=== PATIENT | male | born 1980 | race Caucasian/White ===

== ENCOUNTER 2019-11-22 00:15 | Observation (INO) | payer OTHER, SELFPAY ==
[2019-11-22] VITALS (19 sets, daily range): BP systolic 68–170; BP diastolic 41–110; PULSE 84–123; RESP 14–23; TEMP 36.4–37.2; O2SAT 94–100; BMI 25.1
--- NOTE | ~2019-11-22 | XR_ITS ---
EXAMINATION: XR chest 2V DATE: 11/22/2019 15:53 INDICATION: Cough. Seizure. TECHNIQUE: frontal and lateral views of the chest were obtained. COMPARISON: None FINDINGS: The lungs are clear with no focal airspace opacities, pulmonary edema, pleural effusion or pneumothor ax. The cardiomediastinal silhouette is normal. Comminuted fracture of the proximal left humerus. IMPRESSION: 1. No acute cardiopulmonary disease. 2. Comminuted proximal left humeral fracture. Reviewed, dictated and finalized at location A. CHUTE HARNESS RIGGER
--- NOTE | ~2019-11-22 | XR_ITS ---
EXAMINATION: XR shoulder LT min 2V DATE: 11/22/2019 01:03 INDICATION: Left shoulder pain. Fall. TECHNIQUE: 4 views of left shoulder were obtained. COMPARISON: None. FINDINGS: There is a comminuted fracture of proximal left humerus. At the surgical neck, the distal f racture fragment demonstrates 5 mm medial displacement, 1.4 cm impaction, and 2 mm anterior displacem ent. There is a nondisplaced fracture component at the greater tuberosity. There is mild osteoarthrit is of glenohumeral joint. Acromioclavicular joint is normal. IMPRESSION: 1. Comminuted two-part fracture of proximal left humerus. Reviewed, dictated and finalized at location A. HANDISE CLERK
--- NOTE | ~2019-11-22 | CT_ITS ---
EXAMINATION: CT cervical spine wo con DATE: 11/22/2019 00:51 INDICATION: Head injury. Neck pain. TECHNIQUE: Computed tomography (CT) of the cervical spine was performed without intravenous contrast. Automated exposure control and iterative reconstruction technique were employed. The dose-length pro duct was 408.00 mGy-cm. COMPARISON: None FINDINGS: There is 3 degrees levocurvature of cervical spine. There is a chronic compression fracture of T1 with 2/5 loss of height. There is mildly decreased disc height at C4-C5, C6-C7, and C7-T1 and moderately decreased disc height at C5-C6. The following disc levels are specifically discussed: C2-C3: There is mild left uncovertebral joint osteoarthritis. There is mild bilateral facet joint ost eoarthritis. There is no neural foraminal stenosis. There is no central canal stenosis. C3-C4: There is mild bilateral uncovertebral joint osteoarthritis. There is mild bilateral facet join t osteoarthritis. There is mild right neural foraminal stenosis. There is no central canal stenosis. C4-C5: There is mild bilateral uncovertebral joint osteoarthritis. There is moderate left facet joint osteoarthritis. There is mild bilateral neural foraminal stenosis. There is mild central canal steno sis. C5-C6: There is severe bilateral uncovertebral joint osteoarthritis. There is no facet joint osteoart hritis. There is moderate right and mild left neural foraminal stenosis. There is mild central canal stenosis. C6-C7: There is mild bilateral uncovertebral joint osteoarthritis. There is mild bilateral facet join t osteoarthritis. There is mild bilateral neural foraminal stenosis. There is mild central canal sten osis. C7-T1: There is no uncovertebral joint osteoarthritis. There is severe bilateral facet joint osteoart hritis. There is mild bilateral neural foraminal stenosis. There is no central canal stenosis. IMPRESSION: 1. No acute fracture. 2. Moderate cervical spondylosis. Reviewed, dictated and finalized at location A. ITAL CNA
--- NOTE | ~2019-11-22 | CT_ITS ---
EXAMINATION: CT brain wo con DATE: 11/22/2019 00:50 INDICATION: Head injury. Loss of consciousness. TECHNIQUE: Computed tomography (CT) of the head was performed without intravenous contrast. The mA wa s adjusted according to patient size. Iterative reconstruction technique was employed. The dose-lengt h product was 681.00 mGy-cm. COMPARISON: Brain MRI 02/16/2018 FINDINGS: There is no intracranial hemorrhage, acute infarction, or abnormal intracranial mass lesion . The ventricles are normal in size. The orbits are normal. There is mild mucosal thickening in the p aranasal sinuses. The mastoid air cells are normal. There is left posterior scalp soft tissue swellin g. IMPRESSION: 1. Normal brain. Reviewed, dictated and finalized at location A. ITURE STAINER IMPRESSION: 1. Normal brain.
--- NOTE | 2019-11-22 01:19 | ED.HEATRA ---
HPI - Head Injury General Chief complaint: Head Injury Stated complaint: fall Time Seen by Provider: 11/22/19 01:19 Source: patient Mode of arrival: wheelchair Limitations: no limitations History of Present Illness HPI Narrative: A 38 y/o male presents to the ED after a fall this evening. Pt states he was walking to his car at his sister's house when he slipped on some ice and fell on his left side. Pt c/o left shoulder pain and a HI. Pt went back inside the house to sit down. While pt's sister was grabbing her phone to call their mom, pt got up and had fallen on the floor with possible LOC. Pt's sister helped him up and then he proceeded to falll two more times. Pt does not remember falling the first two times in the house but remembers that he was lightheaded before he fell the third time. Pt notes that he is currently lightheaded in the ED bed. Pt is right hand dominant. He reports daily alcohol use and smoking 0.5 PPD, but denies numbness/tingling, leg pain, CP, SOB, a PMHx of syncope, and drug use. Mechanism of Injury: fall Place: other (sister's house) Related Data Home Medications Medication Instructions Recorded Confirmed cetirizine [Zyrtec] 10 mg PO DAILY PRN 11/22/19 11/22/19 dextroamphetamine-amphetamine 30 mg PO DAILY 11/22/19 11/22/19 [Adderall XR] fluticasone propion-salmeterol 1 puff INHALATION DAILY 11/22/19 11/22/19 fluticasone propionate 2 spray INTRANASAL DAILY PRN 11/22/19 11/22/19 hydroxyzine HCl 25 mg PO DAILY 11/22/19 11/22/19 lisinopril-hydrochlorothiazide tablet 11/22/19 melatonin 15 mg PO HS PRN 11/22/19 11/22/19 sertraline mg 11/22/19 Allergies Allergy/AdvReac Type Severity Reaction Status Date / Time Sulfa (Sulfonamide Allergy Unknown Unknown Verified 11/22/19 01:07 Antibiotics) Review of Systems Review of Systems: All systems reviewed & are unremarkable except as noted in HPI and below Constitutional: Comments: Reports: a fall, lightheadedness Cardiovascular: Cardiovascular: Denies chest pain Respiratory: Respiratory: Denies dyspnea Musculoskeletal: Comments: Reports: left shoulder pain; Denies: leg pain Neurologic: Comments: Reports: HI, LOC; Denies: numbness/tingling PMFSH Past Medical History Medical History Anxiety Fatty liver HTN (hypertension) Surgical History Surgical History History of liver biopsy S/P correction of deviated nasal septum Family History Family History Father Carcinoma of colon Malignant neoplasm of prostate Other Hypertension Social History Social History Smoking packs per day: 0.5 Smoking cigarettes per day: 10.0 Smoking status: Current every day smoker Alcohol intake: current Alcohol use details: daily Substance use: never Comments PCP: Ofelia Egan NP Exam Narrative: Exam Narrative: GENERAL: Well-appearing, well-nourished, and in no acute distress. HEAD: Normocephalic, left occipital scalp hematoma EYES: PERRLA and EOMI, conjunctiva clear without discharge EARS: TM's clear bilaterally without erythema or dullness NOSE: Nares clear, no rhinorrhea or epistaxis THROAT:Mucous membranes moist, Oropharynx normal without erythema, exudate, peritonsillar swelling or fluctuance NECK: Supple, without lymphadenopathy or mass RESPIRATORY: No respiratory distress, Airway patent, Respirations non-labored, Clear to auscultation without rales, rhonchi or wheeze, no chest tenderness HEART: Regular rate and rhythm. No murmur heard. Normal peripheral pulses. ABDOMEN: Soft, nontender, nondistended, normal active bowel sounds. No masses. No rebound or guarding, No organomegaly. SKIN: Warm, dry, normal color without rash NEURO: Alert and oriented x3. CN 2-12 grossly intact. No focal deficits. PSYCH: Normal mood and a
--- NOTE | 2019-11-22 01:30 | ECG_ITS ---
Measurements Intervals [place] Rate: 101 P: 49 UT: 160 QRS: 69 QRSD: 98 T: 55 QT: 350 QTc: 454 Interpretive Statements SINUS TACHYCARDIA BORDERLINE ECG Electronically Signed On 11-22-2019 8:27:22 BOAT CLEANING SUPERVISOR by Jose Last D.O.
[2019-11-22] MEDS: SODIUM CHLORIDE 0.9% IV 1,000 ML 999 ML IV CONT (02:13)
[2019-11-22] MEDS: ONDANSETRON INJ 4 MG/2 ML VIAL IV PUSH (02:13)
[2019-11-22] MEDS: HYDROMORPHONE HCL 1 MG/ML INJ 0.5 MG IV PUSH (02:14)
[2019-11-22 02:20] LABS: Alanine Aminotransferase 184 U/L (4-50); Albumin Level 5.2 g/dL (3.5-5.1); Alkaline Phosphatase 131 U/L (38-126); Aspartate Amino Transferase 239 U/L (17-59); Basophils Absolute Auto 0.1 K/mm3 (0.0-0.1); Basophils Percent Auto 0.7 % (0.2-1.2); Bilirubin,Total 0.5 mg/dL (0.2-1.3); Blood Urea Nitrogen 6 mg/dL (9-20); Calcium 9.2 mg/dL (8.4-10.2); Carbon Dioxide 25 mmol/L (22-30); Chloride 87 mmol/L (98-107); Eosinophils Percent Auto 0.3 % (0-4.4); Estimated CRCL calculation 145 ml/min; Estimated Glomerular Filt Rate > 60; Glucose 93 mg/dL (75-110); Hematocrit 39.4 % (42.0-52.0); Hemoglobin 13.6 g/dL (14.0-18.0); Immature Granulocyte Absolute 0.06 K/mm3 (0.00-0.031); Immature Granulocyte Percent A 0.5 % (0-0.5); Lymphocytes Absolute Auto 0.84 K/mm3 (0.9-3.2); Lymphocytes Percent Auto 7.7 % (18.3-44.2); Mean Corpuscular HGB Conc 34.5 g/dl (32-36); Mean Corpuscular Hemoglobin 32.5 pg (26-34); Monocytes Absolute Auto 0.7 K/mm3 (0.1-0.6); Monocytes Percent Auto 6.6 % (2.6-8.5); Neutrophils Absolute Auto 9.2 K/mm3 (1.3-6.7); Neutrophils Percent Auto 84.2 % (45.5-73.1); Platelet Count Result 313 k/mm3 (150-375); Red Blood Count 4.19 M/mm3 (4.6-6.20); Red Cell Distribution Width 12.5 % (11.5-14.5); Sodium 127 mmol/L (137-145)
[2019-11-22 02:47] LABS: Magnesium 2.1 mg/dL (1.6-2.3)
--- NOTE | 2019-11-22 04:39 | PM.IMHP ---
H&P: HPI History of Present Illness Chief complaint: Syncope, fall, head trauma. Narrative: This is a 38 year old male known to me from previous history of alcoholism with chronically elevated LFTs who presented to the hospital [facility] after suffering a fall outside. The patient has been staying with his sister. Apparently he went outside and slipped on the ice and fell on his left shoulder. His sister witnessed him suffer two syncopal episodes afterwards when he attempted to stand up and immediately passed out. He remembers hitting the back of his head but not many other details. The patient is known to have a liver specialist at [facility]. He admits that he continues to drink 5-6 beers daily. He just recently started hydrochlorothiazide recently. The patient was evaluated in the ER and found to have a left shoulder fracture. Ortho was consulted by ER provider. Currently the patient denies any alcohol withdrawal symptoms. The patient has no other complaints at this time. Review of Systems Review of Systems: All systems reviewed & are unremarkable except as noted in HPI and below PMFSH Past Medical History Medical History Anxiety Fatty liver HTN (hypertension) Surgical History Surgical History History of liver biopsy S/P correction of deviated nasal septum Family History Family History Father Malignant neoplasm of prostate Carcinoma of colon Sibling Hypertension Sister Melanoma Sister Social History Social History Smoking packs per day: 0.5 Smoking cigarettes per day: 10.0 Smoking status: Current every day smoker Tobacco type: cigarettes Alcohol intake: current Drinks per week: 20 Alcohol use details: daily Substance use: current Substance use type: does not use Gender identity (if verbalized by the patient): Male Spiritual care concerns: No Agree to blood products: Yes Meds Home Medications and Allergies Home Medications Medication Instructions Recorded Confirmed Type cetirizine [Zyrtec] 10 mg PO DAILY PRN 11/22/19 11/22/19 History dextroamphetamine-amphetamine 30 mg PO DAILY 11/22/19 11/22/19 History [Adderall XR] fluticasone propion-salmeterol 1 puff INHALATION DAILY 11/22/19 11/22/19 History fluticasone propionate 2 spray INTRANASAL DAILY PRN 11/22/19 11/22/19 History hydroxyzine HCl 25 mg PO DAILY 11/22/19 11/22/19 History lisinopril-hydrochlorothiazide 1 tablet PO DAILY 11/22/19 11/22/19 History melatonin 15 mg PO HS PRN 11/22/19 11/22/19 History sertraline 150 mg PO DAILY 11/22/19 11/22/19 History Allergies Allergy/AdvReac Type Severity Reaction Status Date / Time Sulfa (Sulfonamide Allergy Unknown Unknown Verified 11/22/19 01:07 Antibiotics) Vital Signs Vital Signs - 24 hr 11/22/19 00:21 11/22/19 01:03 11/22/19 02:41 Temperature 36.4 C L 36.7 C 36.7 C Pulse Rate 84 95 97 Respiratory Rate 16 23 H 19 Blood Pressure 97/63 L 147/99 H 112/56 L Pulse Oximetry 99 98 98 11/22/19 02:42 11/22/19 03:47 Temperature Pulse Rate 94 103 H Respiratory Rate 20 Blood Pressure 71/41 L 124/95 H Pulse Oximetry 94 Exam Const: General: cooperative, alert and awake Nutritional Appearance: well nourished Orientation/consciousness: patient oriented x3 HENMT: Head: contusion left occipital General nose exam: Normal external nose present Face and sinus: normal facial exam Mouth: Yes Normal oral and palatal mucosa present and Yes oropharynx normal Eyes: Pupils: Equal, round and reactive pupils present EOM: EOMs intact bilaterally Neck: Neck: supple and no JVD Thyroid: thyroid normal Lymphatic: lymphadenopathy not noted Resp: Effort & Inspection: normal respiratory effort Auscultation: clear to auscultation bilaterally Cardi
--- NOTE | 2019-11-22 05:37 | ADMGEN ---
This patient, Oscar Umanzor, was admitted to [facility] Surg Room 306-01. Patient/family oriented to hospital policies and general routines including ID bracelet, bed and alarms, visiting hours, pain management, procedures, bathroom and other care routines, personal items, smoking policy, room service/diet, and visiting hours. Valuables list has been completed. Information on how to activate the Rapid Response Team has been discussed. Patient/Family are encouraged to report perceived risks to care and to ask questions if they do not understand what they are told or what they should do.
[2019-11-22 06:41] LABS: Glucose Point of Care 83 (65-105)
[2019-11-22 08:20] LABS: Alanine Aminotransferase 154 U/L (4-50); Albumin Level 4.6 g/dL (3.5-5.1); Alkaline Phosphatase 104 U/L (38-126); Aspartate Amino Transferase 178 U/L (17-59); Bilirubin,Total 0.5 mg/dL (0.2-1.3); Blood Urea Nitrogen 5 mg/dL (9-20); Calcium 8.5 mg/dL (8.4-10.2); Carbon Dioxide 23 mmol/L (22-30); Chloride 95 mmol/L (98-107); Estimated CRCL calculation 145 ml/min; Estimated Glomerular Filt Rate > 60; Glucose 85 mg/dL (75-110); Potassium 4.4 mmol/L (3.4-5.0); Sodium 130 mmol/L (137-145)
[2019-11-22] MEDS: THIAMINE HCL 200 MG/2 ML VIAL 100 MG IV PUSH (08:37)
[2019-11-22] MEDS: hydrOXYzine HCL 25 MG TABLET PO (08:38)
--- NOTE | 2019-11-22 08:55 | PM.CNOR ---
Assessment and Plan Assessment and plan (1) Closed left humeral fracture: Qualifiers: Encounter type: initial encounter Humerus Location: surgical neck Fracture morphology: 2-part Fracture alignment: displaced Qualified Code(s): S42.222A - 2-part displaced fracture of surgical neck of left humerus, initial encounter for closed fracture Code(s): S42.302A - Unspecified fracture of shaft of humerus, left arm, initial encounter for closed fracture Status: Acute Assessment and Plan: [age] year old male with comminuted left proximal humerus fracture. Upon discharge, will make the referral to [place] [facility] to have this addressed surgically. This was discussed with him in detail. For now, continue with the immobilizer taking it off for hygiene. History of Present Illness HPI Consult date: 11/22/19 Consult reason: fracture (Left proximal humerus fracture) Chief complaint: Syncope, fall, head trauma. Narrative: 38-year-old right-handed male who slipped on ice yesterday and fell suffering a left proximal humerus fracture. He has been admitted for medical reasons. He complains of pain in the left shoulder. Review of Systems Constitutional: Constitutional: Reports no additional constitutional complaints, Denies excessive sweating and Denies fatigue Eyes: Eyes: Reports no additional eye complaints ENT: Reports system reviewed and no additional complaints, except as documented Cardiovascular: Cardiovascular: Denies chest pain at rest and Denies dyspnea Respiratory: Respiratory: Reports no additional respiratory complaints and Denies dyspnea Gastrointestinal: Gastrointestinal: Reports no additional gastrointestinal complaints Musculoskeletal: Musculoskeletal: Reports as per HPI Integumentary/Breasts: Skin/Breast: Reports system reviewed and no additional complaints, except as docu Neurologic: Reports as per HPI Endocrine: Endocrine: Denies excessive sweating and Denies fatigue Hematologic/Lymphatic: Hematologic/Lymphatic: Denies easy bleeding and Denies easy bruising PMFSH Past Medical History Medical History Anxiety Fatty liver HTN (hypertension) Surgical History Surgical History History of liver biopsy S/P correction of deviated nasal septum Family History Family History Father Malignant neoplasm of prostate Carcinoma of colon Sibling Hypertension Sister Melanoma Sister Social History Social History Smoking packs per day: 0.5 Smoking cigarettes per day: 10.0 Smoking status: Current every day smoker Tobacco type: cigarettes Alcohol intake: current Drinks per week: 20 Alcohol use details: daily Substance use: current Substance use type: does not use Gender identity (if verbalized by the patient): Male Spiritual care concerns: No Agree to blood products: Yes Meds Home Medications and Allergies Home Medications Medication Instructions Recorded Confirmed Type cetirizine [Zyrtec] 10 mg PO DAILY PRN 11/22/19 11/22/19 History dextroamphetamine-amphetamine 30 mg PO DAILY 11/22/19 11/22/19 History [Adderall XR] fluticasone propion-salmeterol 1 puff INHALATION DAILY 11/22/19 11/22/19 History fluticasone propionate 2 spray INTRANASAL DAILY PRN 11/22/19 11/22/19 History hydroxyzine HCl 25 mg PO DAILY 11/22/19 11/22/19 History lisinopril-hydrochlorothiazide 1 tablet PO DAILY 11/22/19 11/22/19 History melatonin 15 mg PO HS PRN 11/22/19 11/22/19 History sertraline 150 mg PO DAILY 11/22/19 11/22/19 History Allergies Allergy/AdvReac Type Severity Reaction Status Date / Time Sulfa (Sulfonamide Allergy Unknown Unknown Verified 11/22/19 01:07 Antibiotics) Vital Signs Vital Signs - 24 hr 11/22/19 00:21 11/22/19
[2019-11-22] MEDS: CHLORDIAZEPOXIDE 25 MG CAPSULE PO ×2 (09:44→17:12)
[2019-11-22] MEDS: TRAMADOL HCL 50 MG TABLET PO (09:47)
[2019-11-22 11:56] LABS: Glucose Point of Care 143 (65-105)
--- NOTE | 2019-11-22 15:35 | PM.IMPN ---
Progress Note: A&P Assessment and Plan (1) Syncope and collapse: Code(s): R55 - Syncope and collapse Status: Acute Assessment and Plan: Patient orthostatic this morning. Continue IV hydration. Fall precautions. Continue orthostatics q shift (2) Closed left humeral fracture: Qualifiers: Encounter type: initial encounter Humerus Location: surgical neck Fracture morphology: 2-part Fracture alignment: displaced Qualified Code(s): S42.222A - 2-part displaced fracture of surgical neck of left humerus, initial encounter for closed fracture Code(s): S42.302A - Unspecified fracture of shaft of humerus, left arm, initial encounter for closed fracture Status: Acute Assessment and Plan: Dr. Ibarra has been consulted and appreciate recommendations; recommends tramadol or Roxicodone, although patient states tramadol was not helping with pain at all. He will not be having surgery today. Plan will be discharge once stable medically and have a referral to [place] [facility] to be addressed. Will switch to roxicodone today. Continue pain control. Will avoid acetaminophen due to transaminitis in setting of alcoholism. (3) Head trauma: Qualifiers: Encounter type: initial encounter Qualified Code(s): S09.90XA - Unspecified injury of head, initial encounter Code(s): S09.90XA - Unspecified injury of head, initial encounter Status: Acute Assessment and Plan: CT brain was unremarkable. Continue pain control. (4) Hyponatremia: Code(s): E87.1 - Hypo-osmolality and hyponatremia Status: Acute Assessment and Plan: Likely seconadry to HCTZ or Zoloft. Na improved with IVF and HCTZ being held. Monitor serum sodium tomorrow May need to continue to hold HCTZ until he follows up with PCP (5) Alcoholism: Code(s): F10.20 - Alcohol dependence, uncomplicated Status: Chronic Assessment and Plan: Last drink was yesterday per patient. CIWA-AR protocol Scheduled Librium CIWA >9 then Ativan PRN Monitor LFTs Thiamine IV daily (6) Transaminitis: Code(s): R74.0 - Nonspecific elevation of levels of transaminase and lactic acid dehydrogenase [LDH] Status: Chronic Assessment and Plan: Appear to be improving this morning. Monitor LFTs. refrain from use of acetaminophen (7) HTN (hypertension): Qualifiers: Hypertension type: unspecified Qualified Code(s): I10 - Essential (primary) hypertension Code(s): I10 - Essential (primary) hypertension Status: Chronic Assessment and Plan: Stable. Monitor blood pressure. (8) Fatty liver: Code(s): K76.0 - Fatty (change of) liver, not elsewhere classified Status: Chronic Assessment and Plan: Will need follow up with PCP (9) Tobacco dependence: Code(s): F17.200 - Nicotine dependence, unspecified, uncomplicated Status: Chronic Assessment and Plan: Continue nicotine patch. Subjective Date/time seen: 11/22/19 15:35 Interval history: Patient is a 38 yo M with previous history of alcoholism and chronically elevated LFTs who is here for a comminuted fracture of proximal humerus. Patient states his pain medications are not working and his left shoulder pain is severe. He notes he has been having a cough he thinks is due to his tobacco smoking. He reported lightheadedness/dizziness when standing up; nursing notes his positive orthostatics this morning. The back of his head is hurting. He denies any f/c/ns, changes in vision/hearing, n/v/d/c, abdominal pain, cp/palpitations, calf pain/swelling, dysuria, hematur
[2019-11-22] MEDS: NICOTINE (*PBKC) 7 MG PATCH 1 PATCH TRANSDERM (17:13)
[2019-11-22] MEDS: hydrALAZINE HCL 20 MG/ML VIAL 10 MG IV PUSH (18:37)
[2019-11-22 18:50] LABS: Glucose Point of Care 111 (65-105)
[2019-11-22] MEDS: SODIUM CHLORIDE 0.9% IV 1,000 ML 125 ML IV CONT (21:34)
[2019-11-22 23:18] LABS: Glucose Point of Care 132 (65-105)
[2019-11-23] VITALS (14 sets, daily range): BP systolic 97–154; BP diastolic 64–101; PULSE 99–137; RESP 16; TEMP 36.6–37.5; O2SAT 97–100
[2019-11-23] MEDS: CHLORDIAZEPOXIDE 25 MG CAPSULE PO ×3 (00:16→21:55)
[2019-11-23] MEDS: hydrALAZINE HCL 20 MG/ML VIAL 10 MG IV PUSH (06:20)
[2019-11-23 06:37] LABS: Basophils Percent Auto 0.7 % (0.2-1.2); Eosinophils Absolute Auto 0.1 K/mm3 (0-0.3); Eosinophils Percent Auto 0.8 % (0-4.4); Hematocrit 35.7 % (42.0-52.0); Hemoglobin 12.3 g/dL (14.0-18.0); Immature Granulocyte Absolute 0.01 K/mm3 (0.00-0.031); Immature Granulocyte Percent A 0.2 % (0-0.5); Lymphocytes Absolute Auto 1.11 K/mm3 (0.9-3.2); Lymphocytes Percent Auto 18.3 % (18.3-44.2); Mean Corpuscular HGB Conc 34.5 g/dl (32-36); Mean Corpuscular Hemoglobin 32.5 pg (26-34); Mean Corpuscular Volume 94.4 fl (80-100); Mean Platelet Volume 9.1 fl (7.4-10.4); Monocytes Absolute Auto 0.7 K/mm3 (0.1-0.6); Monocytes Percent Auto 11.2 % (2.6-8.5); Neutrophils Absolute Auto 4.2 K/mm3 (1.3-6.7); Neutrophils Percent Auto 68.8 % (45.5-73.1); Platelet Count Result 258 k/mm3 (150-375); Red Blood Count 3.78 M/mm3 (4.6-6.20); Red Cell Distribution Width 12.5 % (11.5-14.5); White Blood Count 6.1 K/mm3 (4.5-10.0)
[2019-11-23 06:54] LABS: Alanine Aminotransferase 104 U/L (4-50); Albumin Level 4.2 g/dL (3.5-5.1); Alkaline Phosphatase 114 U/L (38-126); Aspartate Amino Transferase 89 U/L (17-59); Bilirubin,Total 0.8 mg/dL (0.2-1.3); Blood Urea Nitrogen 5 mg/dL (9-20); Calcium 8.7 mg/dL (8.4-10.2); Carbon Dioxide 25 mmol/L (22-30); Chloride 93 mmol/L (98-107); Estimated CRCL calculation 171 ml/min; Estimated Glomerular Filt Rate > 60; Glucose 137 mg/dL (75-110); Potassium 3.6 mmol/L (3.4-5.0); Sodium 129 mmol/L (137-145)
[2019-11-23] MEDS: SODIUM CHLORIDE 0.9% IV 1,000 ML 125 ML IV CONT (07:53)
[2019-11-23 08:48] LABS: Glucose Point of Care 122 (65-105)
[2019-11-23] MEDS: hydrOXYzine HCL 25 MG TABLET PO (09:23)
[2019-11-23] MEDS: lisinopriL 20 MG TABLET PO (09:23)
[2019-11-23] MEDS: SERTRALINE HCL 50 MG TABLET 150 MG PO (09:23)
[2019-11-23] MEDS: THIAMINE HCL 200 MG/2 ML VIAL 100 MG IV PUSH (09:24)
[2019-11-23] MEDS: NICOTINE (*PBKC) 7 MG PATCH 1 PATCH TRANSDERM (09:24)
--- NOTE | 2019-11-23 11:54 | P.PNIM_ITS ---
Progress Note: A&P Assessment and Plan (1) Syncope and collapse: Code(s): R55 - Syncope and collapse Status: Acute Assessment and Plan: Patient appears to have negative orthoastatics overnight, although elevated BP * Continue IV hydration. * Fall precautions. * Continue orthostatics q shift (2) Closed left humeral fracture: Qualifiers: Encounter type: initial encounter Humerus Location: surgical neck Fracture morphology: 2-part Fracture alignment: displaced Qualified Code(s): S42.222A - 2-part displaced fracture of surgical neck of left humerus, initial encounter for closed fracture Code(s): S42.302A - Unspecified fracture of shaft of humerus, left arm, initial encounter for closed fracture Status: Acute Assessment and Plan: Dr. Ibarra has been consulted and appreciate recommendations; recommends tramadol or Roxicodone, although patient states tramadol was not helping with pain at all. He will not be having surgery today. * Plan will be discharge once stable medically and have a referral to [place] [facility] to be addressed. * Continue roxicodone * Continue pain control. * Will avoid acetaminophen due to transaminitis in setting of alcoholism. (3) Head trauma: Qualifiers: Encounter type: initial encounter Qualified Code(s): S09.90XA - Unspecified injury of head, initial encounter Code(s): S09.90XA - Unspecified injury of head, initial encounter Status: Acute Assessment and Plan: CT brain was unremarkable. * Continue pain control. (4) Hyponatremia: Code(s): E87.1 - Hypo-osmolality and hyponatremia Status: Acute Assessment and Plan: Likely seconadry to medications such as HCTZ or Zoloft. Na stable with IVF and HCTZ being held. * Monitor serum sodium tomorrow * May need to continue to hold HCTZ until he follows up with PCP * However, due to high blood pressure, may need to resume HCTZ tomorrow (5) Alcoholism: Code(s): F10.20 - Alcohol dependence, uncomplicated Status: Chronic Assessment and Plan: Last drink was day of presentation per patient. * CIWA-AR protocol * Scheduled Librium with frequency tapered to Q12hr today. * CIWA >9 then Ativan PRN * Monitor LFTs * Thiamine IV daily * Will reassess tomorrow. Likely give 1 time dose tomorrow and possibly discharge if stable (6) Transaminitis: Code(s): R74.0 - Nonspecific elevation of levels of transaminase and lactic acid d ehydrogenase [LDH] Status: Chronic Assessment and Plan: Appear to be improving again this morning. * Monitor LFTs. * refrain from use of acetaminophen (7) HTN (hypertension): Qualifiers: Hypertension type: unspecified Qualified Code(s): I10 - Essential (primary) hypertension Code(s): I10 - Essential (primary) hypertension Status: Chronic Assessment and Plan: Stable, but elevated. * Monitor blood pressure. * Hold HCTZ for now, continue lisinopril (8) Fatty liver: Code(s): K76.0 - Fatty (change of) liver, not elsewhere classified Status: Chronic Assessment and Plan: * Will need follow up with PCP (9) Tobacco dependence: Code(s): F17.200 - Nicotine dependence, unspecified, uncomplicated Status: Chronic
--- NOTE | 2019-11-23 11:54 | PM.IMPN ---
Progress Note: A&P Assessment and Plan (1) Syncope and collapse: Code(s): R55 - Syncope and collapse Status: Acute Assessment and Plan: Patient appears to have negative orthoastatics overnight, although elevated BP Continue IV hydration. Fall precautions. Continue orthostatics q shift (2) Closed left humeral fracture: Qualifiers: Encounter type: initial encounter Humerus Location: surgical neck Fracture morphology: 2-part Fracture alignment: displaced Qualified Code(s): S42.222A - 2-part displaced fracture of surgical neck of left humerus, initial encounter for closed fracture Code(s): S42.302A - Unspecified fracture of shaft of humerus, left arm, initial encounter for closed fracture Status: Acute Assessment and Plan: Dr. Ibarra has been consulted and appreciate recommendations; recommends tramadol or Roxicodone, although patient states tramadol was not helping with pain at all. He will not be having surgery today. Plan will be discharge once stable medically and have a referral to [place] [facility] to be addressed. Continue roxicodone Continue pain control. Will avoid acetaminophen due to transaminitis in setting of alcoholism. (3) Head trauma: Qualifiers: Encounter type: initial encounter Qualified Code(s): S09.90XA - Unspecified injury of head, initial encounter Code(s): S09.90XA - Unspecified injury of head, initial encounter Status: Acute Assessment and Plan: CT brain was unremarkable. Continue pain control. (4) Hyponatremia: Code(s): E87.1 - Hypo-osmolality and hyponatremia Status: Acute Assessment and Plan: Likely seconadry to medications such as HCTZ or Zoloft. Na stable with IVF and HCTZ being held. Monitor serum sodium tomorrow May need to continue to hold HCTZ until he follows up with PCP However, due to high blood pressure, may need to resume HCTZ tomorrow (5) Alcoholism: Code(s): F10.20 - Alcohol dependence, uncomplicated Status: Chronic Assessment and Plan: Last drink was day of presentation per patient. CIWA-AR protocol Scheduled Librium with frequency tapered to Q12hr today. CIWA >9 then Ativan PRN Monitor LFTs Thiamine IV daily Will reassess tomorrow. Likely give 1 time dose tomorrow and possibly discharge if stable (6) Transaminitis: Code(s): R74.0 - Nonspecific elevation of levels of transaminase and lactic acid dehydrogenase [LDH] Status: Chronic Assessment and Plan: Appear to be improving again this morning. Monitor LFTs. refrain from use of acetaminophen (7) HTN (hypertension): Qualifiers: Hypertension type: unspecified Qualified Code(s): I10 - Essential (primary) hypertension Code(s): I10 - Essential (primary) hypertension Status: Chronic Assessment and Plan: Stable, but elevated. Monitor blood pressure. Hold HCTZ for now, continue lisinopril (8) Fatty liver: Code(s): K76.0 - Fatty (change of) liver, not elsewhere classified Status: Chronic Assessment and Plan: Will need follow up with PCP (9) Tobacco dependence: Code(s): F17.200 - Nicotine dependence, unspecified, uncomplicated Status: Chronic Assessment and Plan: Continue nicotine patch. Subjective Date/time seen: 11/23/19 11:54 Interval history: Patient is a 38 yo M with previous history of alcoholism and chronically elevated LFTs who is here for a comminuted fracture of proximal humerus. Patient states his pain medications are working okay for his left arm, but he primarily notes his back and whole body
[2019-11-23] MEDS: MELATONIN 3 MG TABLET PO (21:55)
[2019-11-24] VITALS (7 sets, daily range): BP systolic 107–134; BP diastolic 68–89; PULSE 90–122; RESP 20; TEMP 36.9–37; O2SAT 96–98
[2019-11-24] MEDS: SODIUM CHLORIDE 0.9% IV 1,000 ML 125 ML IV CONT (06:13)
[2019-11-24 06:23] LABS: Basophils Percent Auto 0.3 % (0.2-1.2); Eosinophils Absolute Auto 0.1 K/mm3 (0-0.3); Eosinophils Percent Auto 1.8 % (0-4.4); Hematocrit 34.1 % (42.0-52.0); Hemoglobin 11.9 g/dL (14.0-18.0); Immature Granulocyte Absolute 0.01 K/mm3 (0.00-0.031); Immature Granulocyte Percent A 0.2 % (0-0.5); Lymphocytes Absolute Auto 1.41 K/mm3 (0.9-3.2); Lymphocytes Percent Auto 23.5 % (18.3-44.2); Mean Corpuscular HGB Conc 34.9 g/dl (32-36); Mean Corpuscular Hemoglobin 32.7 pg (26-34); Mean Corpuscular Volume 93.7 fl (80-100); Mean Platelet Volume 9.3 fl (7.4-10.4); Monocytes Absolute Auto 0.7 K/mm3 (0.1-0.6); Monocytes Percent Auto 11.1 % (2.6-8.5); Neutrophils Absolute Auto 3.8 K/mm3 (1.3-6.7); Neutrophils Percent Auto 63.1 % (45.5-73.1); Platelet Count Result 267 k/mm3 (150-375); Red Blood Count 3.64 M/mm3 (4.6-6.20); Red Cell Distribution Width 12.5 % (11.5-14.5)
[2019-11-24 06:35] LABS: Alanine Aminotransferase 80 U/L (4-50); Alkaline Phosphatase 116 U/L (38-126); Aspartate Amino Transferase 54 U/L (17-59); Bilirubin,Total 0.4 mg/dL (0.2-1.3); Blood Urea Nitrogen 4 mg/dL (9-20); Calcium 8.6 mg/dL (8.4-10.2); Carbon Dioxide 24 mmol/L (22-30); Chloride 98 mmol/L (98-107); Estimated CRCL calculation 145 ml/min; Estimated Glomerular Filt Rate > 60; Glucose 118 mg/dL (75-110); Sodium 130 mmol/L (137-145)
--- NOTE | 2019-11-24 09:27 | PM.DS ---
DS: Diagnosis Admitting Diagnosis Admitting Diagnosis: 2-part displaced fracture of surgical neck of left humerus, initial encounter for closed fracture Discharge Diagnosis (1) Syncope and collapse: Code(s): R55 - Syncope and collapse Status: Acute Assessment and Plan: Patient appears to have negative orthostatics overnight Continue IV hydration. Fall precautions. (2) Closed left humeral fracture: Qualifiers: Encounter type: initial encounter Fracture alignment: displaced Fracture morphology: 2-part Humerus Location: surgical neck Qualified Code(s): S42.222A - 2-part displaced fracture of surgical neck of left humerus, initial encounter for closed fracture Code(s): S42.302A - Unspecified fracture of shaft of humerus, left arm, initial encounter for closed fracture Status: Acute Assessment and Plan: Dr. Ibarra has been consulted and appreciate recommendations; recommends tramadol or Roxicodone, although patient states tramadol was not helping with pain at all. He will not be having surgery during this hospital stay. Plan will be discharge today and have a referral to [facility] to have left humeral fracture addressed. Continue oxycodone for pain control until he has surgery. Avoid acetaminophen due to transaminitis in setting of alcoholism. (3) Head trauma: Qualifiers: Encounter type: initial encounter Qualified Code(s): S09.90XA - Unspecified injury of head, initial encounter Code(s): S09.90XA - Unspecified injury of head, initial encounter Status: Acute Assessment and Plan: CT brain was unremarkable. Continue pain control. (4) Hyponatremia: Code(s): E87.1 - Hypo-osmolality and hyponatremia Status: Acute Assessment and Plan: Likely seconadry to medications such as HCTZ or Zoloft. Na stable with IVF and HCTZ being held. Will hold HCTZ until he follows up with PCP Continue lisinopril (5) Alcoholism: Code(s): F10.20 - Alcohol dependence, uncomplicated Status: Chronic Assessment and Plan: Last drink was day of presentation per patient. CIWA-AR protocol Scheduled Librium with frequency tapered to Q12hr yesterday; did well overnight. One dose today then d/c home without benzodiazepines. (6) Transaminitis: Code(s): R74.0 - Nonspecific elevation of levels of transaminase and lactic acid dehydrogenase [LDH] Status: Chronic Assessment and Plan: Appear to be improving again this morning. Repeat CMP in 1 week and to follow up with his liver specialist and PCP refrain from use of acetaminophen (7) HTN (hypertension): Qualifiers: Hypertension type: unspecified Qualified Code(s): I10 - Essential (primary) hypertension Code(s): I10 - Essential (primary) hypertension Status: Chronic Assessment and Plan: Stable, but elevated. Follow up with PCP Hold HCTZ for now, continue lisinopril (8) Fatty liver: Code(s): K76.0 - Fatty (change of) liver, not elsewhere classified Status: Chronic Assessment and Plan: Will need follow up with PCP (9) Tobacco dependence: Code(s): F17.200 - Nicotine dependence, unspecified, uncomplicated Status: Chronic Assessment and Plan: Continue nicotine patch. DS: Summary Hospital Course Reason for hospitalization: syncope and collapse; left humeral fracture Hospital Course: Patient is a 38 year old male known to the hospitalist service from previous history of alcoholism with chronically elevated LFTs who presented to the hospital on 11/22 after suffering a fall outside. Patient had slipped
[2019-11-24] MEDS: hydrOXYzine HCL 25 MG TABLET PO (09:30)
[2019-11-24] MEDS: CHLORDIAZEPOXIDE 25 MG CAPSULE PO (09:31)
[2019-11-24] MEDS: lisinopriL 20 MG TABLET PO (09:31)
[2019-11-24] MEDS: NICOTINE (*PBKC) 7 MG PATCH 1 PATCH TRANSDERM (09:31)
[2019-11-24] MEDS: SERTRALINE HCL 50 MG TABLET 150 MG PO (09:32)
[2019-11-24] MEDS: THIAMINE HCL 200 MG/2 ML VIAL 100 MG IV PUSH (09:32)
--- NOTE | 2019-11-24 13:48 | PC.NURSE ---
SENT WITH PT [facility] FROM THIS VISIT FOR SURGERY IN [facility]
== END 2019-11-24 13:30 | disposition home or self-care (01) ==
LOC: ANHED 03:49 → ANH3MEDSUR 04:00
PROVIDERS: Physician Assistant; Admitting Provider Family Medicine; Emergency Provider General Practice; Visit Provider Family Medicine
DX: R55 Syncope and collapse (principal); S42.222A 2-part displaced fracture of surgical neck of left humerus, initial encounter for closed fracture; S09.90XA Unspecified injury of head, initial encounter; E87.1 Hypo-osmolality and hyponatremia; I10 Essential (primary) hypertension; F10.20 Alcohol dependence, uncomplicated; R74.0 Nonspecific elevation of levels of transaminase and lactic acid dehydrogenase [LDH]; K76.0 Fatty (change of) liver, not elsewhere classified; F17.210 Nicotine dependence, cigarettes, uncomplicated; Z79.899 Other long term (current) drug therapy; Z88.2 Allergy status to sulfonamides; W00.0XXA Fall on same level due to ice and snow, initial encounter; Y93.89 Activity, other specified
CPT/HCPCS: 36415; 70450; 71046; 72125; 73030; 80053; 83735; 85025; 93005; 94640; 96361; 96365; 96366; 96374; 96375; 99285; A9270; G0378; G0379; J0360; J1170; J2405; J3411; J3475; J7030

== ENCOUNTER 2020-01-19 13:05 | Outpatient (RCR) | payer OTHER, SELFPAY ==
--- NOTE | 2020-01-19 13:58 | PTOPEVAL ---
PHYSICAL THERAPY EVALUATION AND PLAN OF CARE Thank you for referring this patient to [facility]. I recommend Oscar participate in physical therapy 2x/week for 4 weeks for strengthening and ROM. Please review, sign, date and return this plan of care MARCELO. I agree with and certify that the following plan of care is medically necessary. Referring Physician Date Evaluation Outpatient Past Medical History Neurological History Hx Migraine Yes Hx Other Neurological Disorders Yes: Head trauma r/t fall 11/22 Cardiovascular History Hx Hypertension Yes Respiratory History Hx Bronchitis Yes Hx Other Respiratory Disorders Yes: Current Smoker Gastrointestinal History Hx Other Gastrointestinal Disorders Yes: Elevated Liver Enzymes- See MD at [facility] Genitourinary History Hx Genitourinary Disorders No Significant History Musculoskeletal History Hx Back Pain Yes: Lower back Hx Fractures Yes: Left Shoulder 11/22/19 Hematological History Hx Hematological Disorders No Significant History Endocrine History Hx Endocrine Disorders No Significant History HEENT History Hx Epistaxis Yes: 2017 Hx Sinus Problems Yes: Seasonal Allergeries Hx Deviated Septum Yes: Surgically repaired Integumentary History Hx Skin Disorders No Significant History Reproductive History Hx Reproductive Disorders No Significant History Psychosocial History Hx Anxiety Yes: Social Hx Attention Deficit Disorder Yes Hx Psychiatric Treatment Yes: every 3 months Pain History Has Past Pain Affected Your Daily Life Yes: Tennis elbow in both arms and lower back pain Effective Methods of Pain Control Ibuprofen 800mg po prn Anesthesia History Hx Anesthesia Reactions No Significant History Other History Hx Other Surgeries Yes: Kena-anal Fistula Evaluation Information Problem Diagnosis left proximal humerus fracture , non-operative Onset 11/22/2019 Subjective Information Oscar is here 2 months s/p Query Text:As Reported By Patient/ left proximal humerus fracture Family . He states he feels generally good today, though there is pain. 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 Self Report Pain Assessment Left Shoulder(s) Reported Pain Level 1 Pain Description Burning Pain Aggravating Factors Lifting Pain Behaviors None Pain Relief Interventions Used By None Patient
--- NOTE | 2020-01-23 12:29 | PCPTNOTE ---
Patient did not show up for scheduled appointment this date.
--- NOTE | 2020-01-28 14:33 | PCPTNOTE ---
cancelled his appointment secondary to COVID-19 precautions. He has no further appointments at this time. His chart will be held until 02/16/2020.
--- NOTE | 2020-02-16 13:32 | PCPTNOTE ---
PHYSICAL THERAPY DISCHARGE NOTIFICATION Patient:Oscar Umanzor Date of :1980 Patient has not returned for any further treatments since 01/19/2020, therefore he will be discharged at this time. Patient?s initial visit was on 01/19/2020. The goals have not been assessed. Thank you for referring this patient to [facility]. Please review, sign, date and return this discharge summary MARCELO. I have been updated about the patient's current status and I agree with discharge from the above service at this time. Referring Physician Date
== END 2020-02-17 08:33 | disposition home or self-care (01) ==
LOC: ANHPT 13:05
DX: S42.202D Unspecified fracture of upper end of left humerus, subsequent encounter for fracture with routine healing (principal)
CPT/HCPCS: 97161

== ENCOUNTER 2020-12-25 20:18 | Inpatient (IN) | payer OTHER, SELFPAY ==
[2020-12-25] VITALS (13 sets, daily range): BP systolic 83–153; BP diastolic 51–90; PULSE 79–118; RESP 15–25; TEMP 36.6–37.1; O2SAT 94–100; BMI 23.0
--- NOTE | ~2020-12-25 | XR_ITS ---
EXAMINATION: XR chest 1V portable EXAM DATE: 12/25/2020 20:53 INDICATION: Left-sided chest pain. STEMI. TECHNIQUE: Portable AP frontal chest x-ray was obtained. Comparison is made to prior examination from 11/22/2019. FINDINGS: The lungs are clear. There are no pleural effusions. Cardiomediastinal silhouette is norm al. There is no pneumothorax suspected. The bones and soft tissues are unremarkable. IMPRESSION: No acute cardiopulmonary findings. Reviewed, dictated and finalized at location A. NESS MANAGEMENT CONSULTANT
--- NOTE | 2020-12-25 20:28 | ECG_ITS ---
Measurements Intervals [place] Rate: 108 P: 56 WV: 155 QRS: 79 QRSD: 105 T: 67 QT: 339 QTc: 456 Interpretive Statements SINUS TACHYCARDIA ST ELEVATION IN ANTEROLAT/INF LEADS- CONSIDER ACUTE INJURY, PERICARDITIS OR EARLY REPOLARIZATION ABNORMALITY BASELINE ARTIFACT- V1-V2 ABNORMAL ECG Electronically Signed On 12-26-2020 7:54:05 POLISHER IMPLANT by Jose Last D.O.
--- NOTE | 2020-12-25 20:35 | ED.CHESTPAIN ---
HPI - Chest Pain General Chief Complaint: Chest Pain Stated Complaint: chest pain Time Seen by Provider: 12/25/20 20:28 Source: patient Mode of arrival: ambulatory Limitations: no limitations History of Present Illness HPI narrative: Patient is 40 years old white male presented to the ED complaining of chest pain that started last night, has been constant since 1 hour prior to arrival patient feels like going to faint. Currently his pain level is 8 out of 10. History of hypertension, smoking, alcohol intake daily, anxiety and depression. Patient denies family history of coronary artery disease. Last alcohol intake was 2-hour prior to arrival, patient drove himself to the emergency room Related Data Home Medications Medication Instructions Recorded Confirmed cetirizine [Zyrtec] 10 mg PO DAILY PRN 11/22/19 11/22/19 dextroamphetamine-amphetamine 30 mg PO DAILY 11/22/19 11/22/19 [Adderall XR] fluticasone propion-salmeterol 1 puff INHALATION DAILY 11/22/19 11/22/19 hydroxyzine HCl 25 mg PO DAILY 11/22/19 11/22/19 lisinopril-hydrochlorothiazide 1 tablet PO DAILY 11/22/19 11/22/19 melatonin 15 mg PO HS PRN 11/22/19 11/22/19 sertraline 150 mg PO DAILY 11/22/19 11/22/19 Allergies Allergy/AdvReac Type Severity Reaction Status Date / Time Sulfa (Sulfonamide Allergy Unknown Unknown Verified 11/22/19 01:07 Antibiotics) Review of Systems Review of Systems: Narrative: CONSTITUTIONAL: Denies fever, chills, or sweats. EYES: Denies visual changes, redness, or discharge. ENT: Denies rhinorrhea, congestion, sore throat, or otalgia. CARDIOVASCULAR: Denies chest pain, palpitations, or edema. RESPIRATORY: Denies cough or dyspnea. GASTROINTESTINAL: Denies abdominal pain, nausea, vomiting, or diarrhea. GENITOURINARY: Denies dysuria or hematuria. SKIN: Denies rash or itching. MUSCULOSKELETAL: Denies back pain, joint pain, or myalgia. NEUROLOGIC: Denies headache, numbness, or weakness. PSYCHIATRIC: Denies anxiety or depression. [facility] Past Medical History Medical History (Updated 12/25/20 @ 22:04 by Elvis Huertas MD) Anxiety Fatty liver HTN (hypertension) Surgical History Surgical History History of liver biopsy S/P correction of deviated nasal septum Family History Family History Father Malignant neoplasm of prostate Carcinoma of colon Sibling Hypertension Sister Melanoma Sister Social History Social History Smoking packs per day: 0.5 Smoking cigarettes per day: 10.0 Years smoked: 12 Smoking pack-years: 6.00 Smoking status: Current every day smoker Tobacco type: cigarettes Alcohol intake: current Drinks per week: 35 Substance use: current Substance use type: crack/cocaine Last use: 12/24/20 Gender identity (if verbalized by the patient): Male Spiritual care concerns: No Agree to blood products: Yes Exam Narrative: Exam Narrative: General appearance: Well-developed, well-nourished Skin: Normal color, edematous lower lip, normal size tongue. Head: Normocephalic, nontraumatic Eyes: Clear conjunctiva ENT: Oropharynx normal, ears normal, nose normal Neck: Supple, nontender Chest and respiratory: Airway patent, no respiratory distress, no accessory muscle use Heart: Regular rate/rhythm Abdomen: Soft, nontender, no organomegaly, quiet bowel sounds Vascular: Normal peripheral pulses, normal capillary refill. 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
[2020-12-25 20:41] LABS: Basophils Absolute Auto 0.1 K/mm3 (0.0-0.1); Basophils Percent Auto 0.7 % (0.2-1.2); Eosinophils Percent Auto 0.1 % (0-4.4); Hematocrit 39.3 % (42.0-52.0); Hemoglobin 13.9 g/dL (14.0-18.0); Immature Granulocyte Absolute 0.03 K/mm3 (0.00-0.031); Immature Granulocyte Percent A 0.4 % (0-0.5); Lymphocytes Absolute Auto 0.91 K/mm3 (0.9-3.2); Lymphocytes Percent Auto 11.9 % (18.3-44.2); Mean Corpuscular HGB Conc 35.4 g/dl (32-36); Mean Corpuscular Hemoglobin 33.9 pg (26-34); Mean Corpuscular Volume 95.9 fl (80-100); Mean Platelet Volume 9.1 fl (7.4-10.4); Monocytes Absolute Auto 1.4 K/mm3 (0.1-0.6); Monocytes Percent Auto 17.9 % (2.6-8.5); Neutrophils Absolute Auto 5.3 K/mm3 (1.3-6.7); Platelet Count Result 250 k/mm3 (150-375); Red Cell Distribution Width 12.5 % (11.5-14.5); White Blood Count 7.7 K/mm3 (4.5-10.0)
[2020-12-25] MEDS: SODIUM CHLORIDE 0.9% IV 1,000 ML 999 ML IV CONT (20:48)
[2020-12-25 20:50] LABS: INR 0.9; Prothrombin Time 12.4 Seconds (11.1-14.7)
[2020-12-25 20:51] LABS: Anion Gap 16 mmol/L (8-16); Blood Urea Nitrogen 12 mg/dL (9-20); Carbon Dioxide 26 mmol/L (22-30); Chloride 90 mmol/L (98-107); Estimated CRCL calculation 89 ml/min; Estimated Glomerular Filt Rate > 60; Glucose 109 mg/dL (75-110); Partial Thromboplastin Time 28.9 SECONDS (22.3-36.8); Potassium 3.7 mmol/L (3.4-5.0); Sodium 132 mmol/L (137-145)
[2020-12-25] MEDS: ATORVASTATIN 40 MG TABLET 80 MG PO (20:53)
[2020-12-25] MEDS: ASPIRIN 81 MG CHEWABLE TABLET 324 MG PO (20:53)
[2020-12-25] MEDS: TICAGRELOR 90 MG TABLET 180 MG (20:53)
--- NOTE | 2020-12-25 20:53 | PC.NURSE ---
bp dropped after 2nd dose of metoprolol ivp dr espinosa ordered NS 1L BOLUS
[2020-12-25 21:03] LABS: Ethanol 21 mg/dL (<10)
[2020-12-25 21:03] LABS: Troponin I < 0.012 ng/mL (0.000-0.034)
--- NOTE | 2020-12-25 21:51 | WPDCARDPROC ---
Cardiac Cath Procedure Note Date of procedure:: 12/25/20 Performing physician:: Elvis Huertas MD Procedure Procedure note:: EMERGENT LEFT HEART CATHETERIZATION AND CORONARY ANGIOGRAM REPORT DATE OF PROCEDURE: 12/25/2020 INDICATION FOR PROCEDURE: chest pain, ST segment abnormality in the inferior leads BRIEF CLINICAL HISTORY: 40-year-old male with hypertension, anxiety/depression, tobacco abuse, and recent cocaine abuse. Patient was brought to the hospital with complaints of chest pain that started last night. Patient reports that he used cocaine yesterday afternoon, and started having chest discomfort midnight last night. His symptoms of chest pain were persistent. Initially thought that his symptoms are related to what he described as heartburn. Due to persistent symptoms, he was brought by his family member to the [facility]. His EKG showed sinus tachycardia, heart rate 108 beats per minute, concave upwards ST elevation in the inferior leads, which was different from his previous EKG dated 11/22/2019. Due to his ongoing chest pain, cardiac catheterization lab was activated. Patient received aspirin, loading dose of ticagrelor, heparin bolus in the ER. In addition, the ER physician had given 2 doses of IV metoprolol to the patient resulting in hypotension with blood pressure in 80s systolic, and required IV resuscitation with normal 7. His blood pressure in the chemical laboratory chief was in 90s systolic. Benefits and risks of the procedure were discussed with the patient in depth, and informed consent was obtained prior to the procedure. Risks of the procedure include but are not limited to vascular complications including groin hematoma, retroperitoneal bleed, vessel perforation; periprocedural IN, cardiac arrhythmias, stroke, contrast induced nephropathy, and . After discussing all the benefits, risks and alternatives, patient was willing to proceed with the procedure. PROCEDURES PERFORMED: 1. Left heart catheterization- Selective left and right coronary angiogram; left ventriculogram and hemodynamic assessment 2. Selective right common femoral angiogram and deployment of Angio-Seal hemostatic device 3. Moderate sedation-CPT code 20588 MODERATE SEDATION: Midazolam 1 mg; fentanyl 25 mcg; Start time 2132 , Stop time 2146 ; Total [id number] time 14 minutes; Torey Hightower RN was trained observer for moderate sedation. ACCESS SITE: Right common femoral artery PROCEDURE NOTE: After obtaining informed consent, patient was brought to catheterization lab and prepped and draped in a usual sterile manner. After local anesthesia with lidocaine, right common femoral artery access was taken with micropuncture needle followed by insertion of a 6 Argentine sheath. Selective left and right coronary angiogram was performed using 5 Argentine JL4 diagnostic catheter and JR4 guide catheters respectively. Orthogonal views were taken. Next, a 5 Argentine pigtail catheter was advanced in the LV cavity and was flushed with normal saline. LV pressure measurement was performed. After this, left ventriculogram was performed. The catheter was flushed again, and gradient across the aortic valve was measured on the pullback of the catheter. Finally, selective right common femoral angiogram was performed followed by successful deployment of Angio-Seal vascular closure device. Patient tolerated procedure well without any immediate procedure related complications. FINDINGS: LEFT MAIN CORONARY: the left main coronary artery is a large caliber vessel, no angiographically significant focal stenosis. The vessel bifurcates into LAD and left circumflex branches. LEFT ANTERIOR DESCENDING ARTERY: the LAD is a medium to large caliber vessel in the proximal segment, tapers, and reaches the LV apex. No significant focal stenosis seen in the LAD or diagonal branches. LEFT CIRCUMFLEX ARTERY: The left circumflex artery is a medium to large caliber vessel, essentially continues
--- NOTE | 2020-12-25 22:00 | PM.IMHP ---
H&P: HPI History of Present Illness Date/Time: 12/25/20 22:00 Date of service-12/25/2020 Chief Complaint: Chest pain Narrative: chief complaint: Chest pain since yesterday HPI: Oscra Umanzor is a 40 year old male with hypertension, anxiety/depression, tobacco abuse, and recent cocaine abuse. Patient was brought to the hospital with complaints of chest pain that started last night. Patient reports that he used cocaine yesterday afternoon, and started having chest discomfort midnight last night . He described his chest pain as pressure-like sensation in the substernal area associated with shortness of breath and dizziness. His symptoms were persistent. Initially thought that his symptoms are related to what he described as heartburn. Due to persistent symptoms, he was brought by his family member to the [facility]. In addition to the symptoms of chest pain, heart patient also had swelling of his lips that started about 3 hours ago. He denies any previous history of known angioedema. Patient's home medications shows that he is on lisinopril. EKG on my personal evaluation showed sinus tachycardia, heart rate 108 beats per minute, concave upwards ST elevation in the inferior leads, which was different from his previous EKG dated 11/22/2019. Due to his ongoing chest pain, cardiac catheterization lab was activated. Patient received aspirin, loading dose of ticagrelor, heparin bolus in the ER. In addition, the ER physician had given 2 doses of IV metoprolol to the patient resulting in hypotension with blood pressure in 80s systolic, and required IV resuscitation with normal 7. His blood pressure in the quality lab technician was in 90s systolic. Emergent coronary angiogram showed normal coronary arteries without any angiographic significant focal stenosis. LV systolic function was preserved. Patient had mild residual discomfort after completion of the cardiac catheterization. Review of Systems Review of Systems: Narrative: General: Negative for fever, chills, fatigue Psychological: Positive for anxiety, depression Ophthalmic: negative for loss of vision ENT: Negative for epistaxis, headaches Allergy and immunology: Negative for hives, nasal congestion Hematologic and lymphatic: Negative for overt bleeding problems Endocrine: Negative for hot flashes, palpitations Respiratory: Negative for cough, hemoptysis Cardiovascular: positive for chest pain and shortness of breath Gastrointestinal: Negative for abdominal pain, nausea, vomiting, hematochezia Musculoskeletal: Negative for myalgia, joint pains Neurological: Negative for weakness Dermatological: Negative for rash, skin discoloration PMFSH Past Medical History Medical History (Updated 12/25/20 @ 22:04 by Elvis Huertas MD) Anxiety Fatty liver HTN (hypertension) Surgical History Surgical History History of liver biopsy S/P correction of deviated nasal septum Family History Family History Father Malignant neoplasm of prostate Carcinoma of colon Sibling Hypertension Sister Melanoma Sister Social History Social History Smoking packs per day: 0.5 Smoking cigarettes per day: 10.0 Smoking status: Current every day smoker Tobacco type: cigarettes Alcohol intake: current Drinks per week: 20 Substance use: current Substance use type: does not use Gender identity (if verbalized by the patient): Male Spiritual care concerns: No Agree to blood products: Yes Meds Home Medications and Allergies Home Medications Medication Instructions Recorded Confirmed Type cetirizine [Zyrtec] 10 mg PO DAILY PRN 11/22/19 11/22/19 History dextroamphetamine-amphetamine 30 mg PO DAILY 11/22/19 11/22/19 History [Adderall XR] fluticasone propion-salmeterol 1 puff INHALATION DAILY 11/22/19
--- NOTE | 2020-12-25 22:20 | PC.NURSE ---
This patient, Oscar Umanzor, was admitted to Intensive Care Unit-1. Patient/family oriented to hospital policies and general routines including ID bracelet, bed and alarms, visiting hours, pain management, procedures, bathroom and other care routines, personal items, smoking policy, room service/diet, and visiting hours. Information on how to activate the Rapid Response Team has been discussed. Patient/Family are encouraged to report perceived risks to care and to ask questions if they do not understand what they are told or what they should do.
[2020-12-25] MEDS: diphenhydrAMINE HCl CAP 25 MG CAPSULE PO (23:19)
[2020-12-25] MEDS: SODIUM CHLORIDE 0.9% IV 1,000 ML 125 ML IV CONT (23:19)
[2020-12-26] VITALS (9 sets, daily range): BP systolic 105–139; BP diastolic 71–94; PULSE 88–101; RESP 16–18; TEMP 36.4–36.9; O2SAT 98–99
[2020-12-26 00:08] LABS: Troponin I < 0.012 ng/mL (0.000-0.034)
[2020-12-26 03:02] LABS: Troponin I < 0.012 ng/mL (0.000-0.034)
[2020-12-26] MEDS: ASPIRIN 81 MG ENTERIC TABLET PO (09:22)
[2020-12-26] MEDS: SERTRALINE HCL 50 MG TABLET 150 MG PO (09:22)
--- NOTE | 2020-12-26 12:50 | ECG_ITS ---
Measurements Intervals [place] Rate: 81 P: 49 MS: 136 QRS: 83 QRSD: 93 T: 65 QT: 363 QTc: 423 Interpretive Statements SINUS RHYTHM ST ELEVATION IN ANTEROLAT/INF LEADS- CONSIDER ACUTE INJURY, PERICARDITIS OR EARLY REPOLARIZATION ABNORMALITY ABNORMAL ECG Electronically Signed On 12-26-2020 15:26:37 FILM PAINTER by Jose Last D.O.
--- NOTE | 2020-12-26 13:02 | PM.DS ---
DS: Admitting Diagnosis Admitting Diagnosis Admitting Diagnosis: Chest pain, possible STEMI DS: Discharge Diagnosis Discharge Diagnosis (1) Chest pain: Code(s): R07.9 - Chest pain, unspecified Status: Acute Assessment and Plan: The patient was admitted with chest pain EKG changes, provoking ?Code STEMI? and an emergency cardiac catheterization which was performed by Dr. Huertas. He found no obstructive coronary disease and normal left ventricular function. During the cardiac catheterization Dr. Huertas found that the patient had use cocaine the day prior and thought the chest pain may have been related to cocaine use, possible transient spasm or thrombosis of a coronary artery. (2) Pericarditis: Code(s): I31.9 - Disease of pericardium, unspecified Status: Acute Assessment and Plan: Patient today states he continues to have some mild pleuritic left-sided chest pain, possibly were supine. EKG is consistent with pericarditis as well with [place] depression and diffuse ST elevation. He had no friction rub however. No evidence of any significant pericardial fluid or tamponade. I think he may have pericarditis as a cause of his chest pain. I have ordered a repeat EKG, sed rate AKHIL and rheumatoid factor and will prescribe anti-inflammatories (colchicine and ibuprofen) but I think is still reasonable for him to be discharged today with outpatient follow-up. Patient understands he should call if he feels worse or short of breath. (3) Substance abuse: Code(s): F19.10 - Other psychoactive substance abuse, uncomplicated Status: Acute Assessment and Plan: Patient states he uses cocaine frequently. Counseled about the deleterious effects of cocaine use. (4) Angio-edema: Qualifiers: Encounter type: sequela Qualified Code(s): T78.3XXS - Angioneurotic edema, sequela Code(s): T78.3XXA - Angioneurotic edema, initial encounter Status: Acute Assessment and Plan: Patient also had lip swelling consistent with angioedema, possibly due to the lisinopril. This was discontinued and he was changed to losartan HCT. Advised that he may be allergic to lisinopril, and to follow-up with his primary care doctor for hypertension management and refills. (5) Tobacco dependence: Code(s): F17.200 - Nicotine dependence, unspecified, uncomplicated Status: Chronic Assessment and Plan: Smoking cessation was strongly encouraged. Currently using nicotine gum and has used Chantix as well in the past. (6) Exophthalmos: Code(s): H05.20 - Unspecified exophthalmos Status: Acute Assessment and Plan: Exophthalmos noted on exam. Patient showed me a recent TSH which was normal. (7) HTN (hypertension): Qualifiers: Hypertension type: unspecified Qualified Code(s): I10 - Essential (primary) hypertension Code(s): I10 - Essential (primary) hypertension Status: Chronic Assessment and Plan: Controlled. DS: Summary Hospital Course Reason for hospitalization: Chest pain with EKG changes. Hospital Course: As above. Time spent discussing smoking cessation with patient: 3 to 10 minutes Status at Discharge Cognitive/behavioral status at discharge: Intact Time Spent with Patient Time attestation: Total time spent providing and/or coordinating discharge services: 45 minutes Time spent: Greater than 30 minutes Exam Const: General: comfortable and no acute distress Other: Having some nicotine withdrawal symptoms. HENMT: Mouth: Yes moist mucous membranes Eyes: EOM: EOMs intact bilat
[2020-12-26 13:22] LABS: Rheumatoid Factor < 8.6 IU/ML (<12)
[2020-12-26 13:32] LABS: Erythrocyte Sedimentation Rate 19 mm/hr (0-20)
--- NOTE | 2020-12-26 15:16 | PC.NURSE ---
Patient discharged to home. Patient left floor with hospital staff, oriented x4, no complaints of chest pain/shortness of breath. All belongs sent with patient.
[2020-12-30 13:38] LABS: Anti Nuclear Antibody Pattern Nuclear, Speckled; Anti Nuclear Antibody Titer 1:40 (Negative)
== END 2020-12-26 15:15 | disposition home or self-care (01) | DRG 191 ==
LOC: ANHED 21:05 → ANHIMU 12-26 00:06 → ANHICU 12-29 11:45 → ANHIMU 12-29 11:45
PROVIDERS: Admitting Provider Internal Medicine Cardiovascular Disease; Emergency Provider Emergency Medicine; PCP Internal Medicine; Visit Provider Internal Medicine Cardiovascular Disease
PROC: 4A023N7 Measurement of Cardiac Sampling and Pressure, Left Heart, Percutaneous Approach (ICD-10-PCS; CPT 93452; principal; 2020-12-25 20:50)
PROC: 4A023N8 Measurement of Cardiac Sampling and Pressure, Bilateral, Percutaneous Approach (ICD-10-PCS; 2020-12-25 20:50)
DX: I20.1 Angina pectoris with documented spasm (principal); F41.8 Other specified anxiety disorders; I10 Essential (primary) hypertension; R22.0 Localized swelling, mass and lump, head; I31.9 Disease of pericardium, unspecified; F14.10 Cocaine abuse, uncomplicated; T78.3XXA Angioneurotic edema, initial encounter; F17.210 Nicotine dependence, cigarettes, uncomplicated
CPT/HCPCS: 36415; 71045; 80048; 80307; 84484; 85025; 85610; 85652; 85730; 86038; 86039; 86430; 93005; 93458; 99291; A9270; C1760; C1887; C1894; G0269; J1644; J7030; J7040

== ENCOUNTER 2021-03-11 16:43 | Outpatient (CLI) | payer OTHER, SELFPAY ==
--- NOTE | ~2021-03-11 | XR_ITS ---
EXAMINATION: XR shoulder RT min 2V DATE: 03/11/2021 17:00 INDICATION: Right shoulder pain. TECHNIQUE: 4 views of right shoulder were obtained. COMPARISON: None. FINDINGS: Bone alignment is normal. No fracture. Joint spaces are well maintained. IMPRESSION: 1. Normal right shoulder. Reviewed, dictated and finalized at location A. IMPRESSION: 1. Normal right shoulder.
== END 2021-03-11 16:44 | disposition home or self-care (01) ==
LOC: ANHIMG 16:46
PROVIDERS: PCP Nurse Practitioner Family; Visit Provider Nurse Practitioner Family
DX: M25.511 Pain in right shoulder (principal)
CPT/HCPCS: 73030

== ENCOUNTER 2021-06-02 14:15 | Outpatient (RCR) | payer OTHER, SELFPAY ==
--- NOTE | 2021-04-25 11:12 | PTOPEVAL ---
PHYSICAL THERAPY EVALUATION AND PLAN OF CARE Thank you for referring Oscar Umanzor to [facility].? The patient is scheduled to be seen for therapy? 2x/week for 4 weeks. Please review, sign, date and return this plan of care MARCELO. I agree with and certify that the following plan of care is medically necessary. Referring Physician Date Attending Provider: Armando Jennings Evaluation Outpatient Past Medical History Neurological History Hx Migraine Yes Hx Other Neurological Disorders Yes: Head trauma r/t fall 11/22/19 Cardiovascular History Hx Chest Pain Yes Hx Hypertension Yes Respiratory History Hx Bronchitis Yes Hx Other Respiratory Disorders Yes: Current Smoker Gastrointestinal History Hx Other Gastrointestinal Disorders Yes: Elevated Liver Enzymes- See MD at [facility] Genitourinary History Hx Genitourinary Disorders No Significant History Musculoskeletal History Hx Back Pain Yes: Lower back Hx Fractures Yes: Left Shoulder 11/22/19 HEENT History Hx Epistaxis Yes: 2017 Hx Sinus Problems Yes: Seasonal Allergeries Hx Deviated Septum Yes: Surgically repaired Hx Other HEENT Disorders Yes: DEAFNESS RIGHT EAR Integumentary History Psychosocial History Hx Anxiety Yes: Social Hx Attention Deficit Disorder Yes Hx Psychiatric Treatment Yes: every 3 months Pain History Has Past Pain Affected Your Daily Life Yes: Tennis elbow in both arms and lower back pain Effective Methods of Pain Control Ibuprofen 800mg po prn Anesthesia History Hx Anesthesia Reactions No Significant History Other History Hx Other Surgeries Yes: Kena-anal Fistula Diagnosis chronic left shoulder pain Subjective Information Oscar is here today 1.5 years Query Text:As Reported By Patient/ after left proximal humerus Family fracture. He was here a year ago for evaluation of the left shoulder and then stopped coming because of COVID-19. 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 States it is the same as it was. Cannot sleep well and cannot sleep on that side. Self Report Pain Assessment Left Shoulder(s) Reported Pain Level 4 Pain Description Aching Pain Frequency Chronic,Continuous Greatest Pain Intensity 6 Pain Aggravating Factors Lifting Other Pain Aggravating Factors lifting/carrying Pain Behaviors None
--- NOTE | 2021-05-02 12:52 | PCPTNOTE ---
Patient did not show up for scheduled appointment this date. Called and spoke with Pt. Pt apologized for forgetting about appointment. He stated his dog yesterday and he just forgot about his appointment. Gave condolences. Reminded Pt of upcoming appointment on , 05/05/21 @14:00.
--- NOTE | 2021-05-19 12:54 | PCPTNOTE ---
Patient did not show up for scheduled appointment this date. Called spoke with Pt, He stated to have forgotten. Reminded Pt of upcoming appointment on 05/23/21 @ 11:00
--- NOTE | 2021-05-23 11:24 | PCPTNOTE ---
Patient did not show up for scheduled appointment this date. Called and spoke with Pt. Pt thought appointment was at 12:00pm. Reminded Pt of upcoming appointment on 05/26/21 @ 11:00am.
--- NOTE | 2021-05-26 11:19 | PCPTNOTE ---
Patient arrived 10 minutes late to his appointment; however, ended up having to cancel and reschedule his appointment due to a family emergency.
--- NOTE | 2021-06-02 14:48 | PCPTNOTE ---
PHYSICAL THERAPY DISCHARGE NOTE Attending Provider: Armando Jennings Patient:Oscar Umanzor Date of :1980 Oscar did not attend today's visit; however, I spoke with him on the phone about his condition and he states that he is all better and can sleep at night, which is what he wanted. We will discharge patient from care. Patient?s initial visit was on 04/25/2021 and had a total of 5 visits. Thank you for referring Oscar to [facility]. Please review, sign, date and return this discharge summary MARCELO. I have been updated about the patient's current status and I agree with discharge from the above service at this time. Referring Physician Date
--- NOTE | 2021-06-02 14:50 | PCPTNOTE ---
Patient did not show up for scheduled appointment this date.
== END 2021-07-13 12:00 | disposition home or self-care (01) ==
LOC: ANHPT 14:15
PROVIDERS: PCP Nurse Practitioner Family
DX: S42.202D Unspecified fracture of upper end of left humerus, subsequent encounter for fracture with routine healing (principal)
CPT/HCPCS: 97110; 97161

== ENCOUNTER 2021-10-06 09:08 | Outpatient (CLI) | payer OTHER, SELFPAY ==
--- NOTE | 2021-10-06 09:18 | ECHO_ITS ---
Patient Info Name: Oscar Umanzor Age: 40 years : 1980 Gender: Male Ht: 70 in Wt: 166 lbs BSA: 1.93 m2 HR: 94 bpm BP: 131 / 107 mmHg Technical Quality: Good Exam Date: 10/06/2021 9:25 AM Exam Location: [facility] Patient Status: Outpatient Admit Date: 10/06/2021 Staff Ordering Physician: Daria Whitley NP Salad Maker: Nely Wang RDCS Attending Provider: Daria Whitley NP Exam Type: CA echo doppler color flow Study Info Indications R07.9 - Chest pain, unspecified Complete two-dimensional, color flow and Doppler transthoracic echocardiogram is performed. Summary 1. Complete two-dimensional, color flow and Doppler transthoracic echocardiogram is performed. 2. Left ventricular systolic function is normal, estimated at 50-55%. 3. The left ventricular diastolic function is normal. 4. There is trace mitral valve regurgitation. 5. There is trace tricuspid valve regurgitation. 6. No pulmonary hypertension, estimated pulmonary arterial systolic pressure is 19 mmHg. Left Ventricle Left ventricular chamber dimension is normal. Left ventricular systolic function is normal, estimated at 50-55%. There is no increased left ventricular wall thickness. Left ventricular septal wall motion is normal. The left ventricular diastolic function is normal. Right Ventricle Right ventricular chamber dimension is normal. Right ventricular systolic function is normal. Left Atria Left atrial chamber dimension is normal. Right Atria Right atrial chamber dimension is normal. Atrial Septum Intact interatrial septum visualized by color flow imaging. Aortic Valve The aortic valve is trileaflet. There is no aortic valve sclerosis. There is no aortic valve stenosis. There is no aortic valve regurgitation. Pulmonic Valve The pulmonic valve is normal. There is no pulmonic valve stenosis. There is no pulmonic regurgitation. Mitral Valve The mitral valve has normal leaflets. There is no mitral valve stenosis. There is trace mitral valve regurgitation. Tricuspid Valve The tricuspid valve leaflets are normal. There is no significant tricuspid valve stenosis. There is trace tricuspid valve regurgitation. No pulmonary hypertension, estimated pulmonary arterial systolic pressure is 19 mmHg. Pericardium/Pleural The pericardium appears normal. There is no pericardial effusion. Inferior Vena Cava Normal inferior vena cava with >50% collapse upon inspiration consistent with normal right atrial pressure, 5 mmHg. Aorta The aortic root size at the sinus of Valsalva is normal. The prox ascending aorta size is normal. Left Ventricular Outflow Tract Name Value Normal LVOT 2D LVOT Diameter 2.2 cm LVOT Doppler LVOT Peak Gradient 3 mmHg LVOT Mean Gradient 2 mmHg LVOT VTI 18 cm LVOT VTI/AV VTI Ratio 0.8 LVOT Stroke Volume 67 ml LVOT CO 6.0 l/min LVOT CI 3.1 l/min/m2
--- NOTE | 2021-10-06 09:20 | ECG_ITS ---
Measurements Intervals [place] Rate: 87 P: 59 NH: 162 QRS: 92 QRSD: 97 T: 76 QT: 365 QTc: 440 Interpretive Statements SINUS RHYTHM RIGHT AXIS DEVIATION ST ELEVATION IN ANTEROLAT/INF LEADS- PROBABLY EARLY REPOLARIZATION, OR PERICARDITIS ABNORMAL ECG Electronically Signed On 10-06-2021 10:02:02 ENTRY LEVEL MECH[employer]ICAL ENGINEER by Jose Last D.O.
== END 2021-10-06 09:09 | disposition home or self-care (01) ==
PROVIDERS: PCP Nurse Practitioner Family; Visit Provider Nurse Practitioner Family
DX: R07.89 Other chest pain (principal); Z86.79 Personal history of other diseases of the circulatory system
CPT/HCPCS: 93005; 93306